=== PATIENT | female | born 1995 | race Caucasian/White ===

== ENCOUNTER 2021-04-02 23:28 | Inpatient (IN) | payer MEDICAID, OTHER ==
[~2021-04-02] VITALS: Ht 157.5 cm; Wt 151.3 kg
--- NOTE | 2021-04-03 00:25 | NUR ---
PATIENT STATES SHE HAS BEEN SICK SINCE Tuesday03/27/21 WITH SYMPTOMS WORSENING OVER THE LAST 24 HOURS. LES HAS NOT HAD THE VACCINE. INITIAL ROOM AIR SATURATION 92%. WITH ACTIVITY OF LABS, X-RAY PATIENT'S ROOM AIR SATUATION DECREASED DOWN TO 86% AND WAS PLACED ON 2L VIA NC.
[2021-04-03 00:29] LABS: BASOPHILS % (AUTO) 0 % (0-1); EOSINOPHILS % (AUTO) 0 % (1-7); LYMPHOCYTES % (AUTO) 18 % (22-44); MEAN CORPUSCULAR HEMOGLOBIN 25.3 pg (27.0-34.8); MEAN CORPUSCULAR HGB CONC 33.5 g/dL (32.4-35.8); MEAN PLATELET VOLUME 8.8 fL (7.4-10.4); MONOCYTES % (AUTO) 4 % (2-9); NEUTROPHILS % (AUTO) 78 % (42-75); PLATELET COUNT 189 x10^3/uL (130-400); RED BLOOD COUNT 5.08 x10^6/uL (3.82-5.3); RED CELL DISTRIBUTION WIDTH 15.4 % (9.6-15.2)
[2021-04-03] MEDS ORDERED: SODIUM CHLORIDE 0.9% 1,000ML IVBOLUS ONE (00:30)
[2021-04-03] MEDS ORDERED: DEXAMETHASONE 4 MG TABLET PO ONE (00:30)
[2021-04-03] MEDS ORDERED: ACETAMINOPHEN 325 MG TABLET PO ONE (00:30)
[2021-04-03] MEDS ORDERED: DEXAMETHASONE 4 MG TABLET ONE (00:31)
[2021-04-03] MEDS ORDERED: ACETAMINOPHEN 325 MG TABLET ONE (00:31)
[2021-04-03 00:40] LABS: ALBUMIN 2.7 g/dL (3.4-5.0); ANION GAP 6 mmol/L (5-15); CALCIUM 8.3 mg/dL (8.5-10.1); CHLORIDE 103 mmol/L (98-107)
[2021-04-03 00:46] LABS: ALANINE AMINOTRANSFERASE 31 U/L (12-78); ALKALINE PHOSPHATASE 75 U/L (45-117); BILIRUBIN,TOTAL 0.3 mg/dL (0.2-1.0); CREATININE 0.81 mg/dL (0.55-1.02); TOTAL PROTEIN 7.7 g/dL (6.4-8.2); TROPONIN I < 0.015 ng/mL (0.000-0.045)
--- NOTE | 2021-04-03 01:03 | NUR ---
PATIENT SITTING UP ON GURNEY, RESPIRATIONS SHALLOW, ALL NEEDS MET AT THIS TIME, WILL CONTINUE TO MONITOR.
--- NOTE | 2021-04-03 01:34 | NUR ---
Break RN: Patient sitting up in [facility]. Respirations even and rapid. Awaiting bed for admission.
--- NOTE | 2021-04-03 01:44 | NUR ---
Pt to be admitted to [facility], room 505. Report called to Basilia alfred.
[2021-04-03 02:00] VITALS: BP 120/77
[2021-04-03] MEDS ORDERED: ONDANSETRON 2MG/ML, 2ML IVPush PRN (02:00)
[2021-04-03] MEDS ORDERED: POLYETHYLENE GLYCOL 17 GM PACKET PO PRN (02:00)
[2021-04-03] MEDS ORDERED: PHARMACY MAY ADJ FOR RENAL FX MC PRN (02:00)
[2021-04-03] MEDS ORDERED: MELATONIN 5 MG TABLET PO PRN (02:00)
[2021-04-03] MEDS ORDERED: POTASSIUM CHLORIDE 20 MEQ TAB.ER.PRT PO ONE (02:00)
[2021-04-03] MEDS ORDERED: OXYcodone IR 5MG TABLET PO PRN (02:00)
[2021-04-03] MEDS ORDERED: BENZONATATE 100 MG CAPSULE PO ONE (02:00)
[2021-04-03] MEDS ORDERED: KETOROLAC 30 MG/1 ML IV PRN (02:00)
[2021-04-03] MEDS ORDERED: LABETALOL 5MG/ML, 20ML IVPush PRN (02:00)
[2021-04-03] MEDS: ENOXAPARIN 30 MG/0.3 ML SQ SCH ×2 (02:42→16:41)
[2021-04-03 06:31] LABS: BASOPHILS % (AUTO) 0 % (0-1); EOSINOPHILS % (AUTO) 0 % (1-7); LYMPHOCYTES % (AUTO) 9 % (22-44); MEAN CORPUSCULAR HEMOGLOBIN 25.5 pg (27.0-34.8); MEAN CORPUSCULAR HGB CONC 33.5 g/dL (32.4-35.8); MEAN PLATELET VOLUME 9.7 fL (7.4-10.4); MONOCYTES % (AUTO) 2 % (2-9); NEUTROPHILS % (AUTO) 88 % (42-75); PLATELET COUNT 181 x10^3/uL (130-400); RED BLOOD COUNT 4.87 x10^6/uL (3.82-5.3); RED CELL DISTRIBUTION WIDTH 15.1 % (9.6-15.2)
[2021-04-03 06:34] LABS: CHLORIDE 105 mmol/L (98-107)
[2021-04-03 06:43] LABS: ANION GAP 7 mmol/L (5-15); CALCIUM 8.6 mg/dL (8.5-10.1)
[2021-04-03 07:12] VITALS: BP 110/74
[2021-04-03] MEDS ORDERED: GUAIFENESIN/COD200MG-20MG/10ML LIQUID PO PRN (09:00)
[2021-04-03] MEDS: ZINC SULFATE 220 MG CAPSULE PO SCH (09:31)
[2021-04-03] MEDS: ASCORBIC ACID 500 MG TABLET PO SCH ×2 (09:31→20:53)
[2021-04-03] MEDS: DEXAMETHASONE 4 MG/ML, 1ML IVPush SCH (09:31)
[2021-04-03] MEDS: BENZONATATE 100 MG CAPSULE PO SCH ×3 (09:32→20:53)
[2021-04-03] MEDS: FAMOTIDINE 20 MG TABLET PO SCH ×2 (09:32→20:53)
[2021-04-03] MEDS: THIAMINE 100MG TABLET PO SCH (09:32)
[2021-04-03] MEDS: CHOLECALCIFEROL 5,000u TAB PO SCH (09:32)
[2021-04-03 12:21] VITALS: BP 115/78
[2021-04-03 20:46] VITALS: BP 95/49
[2021-04-03] MEDS: MELATONIN 5 MG TABLET PO SCH (20:54)
[2021-04-03] MEDS: ACETAMINOPHEN 325 MG TABLET PO PRN (21:18)
[2021-04-04 00:55] VITALS: BP 94/56
[2021-04-04] MEDS: ENOXAPARIN 30 MG/0.3 ML SQ SCH ×2 (06:10→17:10)
[2021-04-04 06:12] LABS: BASOPHILS % (AUTO) 0 % (0-1); EOSINOPHILS % (AUTO) 0 % (1-7); LYMPHOCYTES % (AUTO) 24 % (22-44); MEAN CORPUSCULAR HEMOGLOBIN 25.6 pg (27.0-34.8); MEAN CORPUSCULAR HGB CONC 33.9 g/dL (32.4-35.8); MEAN PLATELET VOLUME 9.1 fL (7.4-10.4); MONOCYTES % (AUTO) 11 % (2-9); NEUTROPHILS % (AUTO) 65 % (42-75); PLATELET COUNT 197 x10^3/uL (130-400); RED BLOOD COUNT 4.79 x10^6/uL (3.82-5.3); RED CELL DISTRIBUTION WIDTH 15.3 % (9.6-15.2)
[2021-04-04 06:15] LABS: HCT (SEDRATE) 35.9 % (34.6-47.8)
[2021-04-04 06:41] LABS: ALBUMIN 2.4 g/dL (3.4-5.0); ANION GAP 6 mmol/L (5-15); CALCIUM 8.7 mg/dL (8.5-10.1); CHLORIDE 105 mmol/L (98-107); CREATININE 0.65 mg/dL (0.55-1.02)
[2021-04-04 06:49] LABS: ALANINE AMINOTRANSFERASE 27 U/L (12-78); ALKALINE PHOSPHATASE 67 U/L (45-117); BILIRUBIN,TOTAL 0.3 mg/dL (0.2-1.0); TOTAL PROTEIN 7.2 g/dL (6.4-8.2)
[2021-04-04 07:45] VITALS: BP 106/71
[2021-04-04] MEDS ORDERED: REMDESIVIR 200 MG in SODIUM CHLORIDE 0.9% 250 ML IVPB ONE (08:00)
[2021-04-04] MEDS: THIAMINE 100MG TABLET PO SCH (09:13)
[2021-04-04] MEDS: ZINC SULFATE 220 MG CAPSULE PO SCH (09:13)
[2021-04-04] MEDS: FAMOTIDINE 20 MG TABLET PO SCH ×2 (09:13→21:37)
[2021-04-04] MEDS: ASCORBIC ACID 500 MG TABLET PO SCH ×2 (09:13→21:37)
[2021-04-04] MEDS: CHOLECALCIFEROL 5,000u TAB PO SCH (09:13)
[2021-04-04] MEDS: BENZONATATE 100 MG CAPSULE PO SCH ×3 (09:13→21:37)
[2021-04-04] MEDS: DEXAMETHASONE 4 MG/ML, 1ML IVPush SCH (09:14)
[2021-04-04 11:29] VITALS: BP 99/64
[2021-04-04 14:36] VITALS: BP 109/63
[2021-04-04 20:03] VITALS: BP 106/64
[2021-04-04] MEDS: MELATONIN 5 MG TABLET PO SCH (21:00)
[2021-04-04] MEDS: ACETAMINOPHEN 325 MG TABLET PO PRN (21:37)
[2021-04-05 00:07] VITALS: BP 121/72
[2021-04-05] MEDS: ENOXAPARIN 30 MG/0.3 ML SQ SCH ×2 (05:31→17:32)
[2021-04-05 06:12] LABS: BASOPHILS % (AUTO) 0 % (0-1); EOSINOPHILS % (AUTO) 0 % (1-7); LYMPHOCYTES % (AUTO) 39 % (22-44); MEAN CORPUSCULAR HEMOGLOBIN 25.3 pg (27.0-34.8); MEAN CORPUSCULAR HGB CONC 33.3 g/dL (32.4-35.8); MEAN PLATELET VOLUME 8.8 fL (7.4-10.4); MONOCYTES % (AUTO) 14 % (2-9); NEUTROPHILS % (AUTO) 46 % (42-75); PLATELET COUNT 223 x10^3/uL (130-400); RED BLOOD COUNT 4.58 x10^6/uL (3.82-5.3); RED CELL DISTRIBUTION WIDTH 15.2 % (9.6-15.2)
[2021-04-05 06:17] LABS: CHLORIDE 106 mmol/L (98-107)
[2021-04-05 06:25] LABS: ALANINE AMINOTRANSFERASE 29 U/L (12-78); ALBUMIN 2.4 g/dL (3.4-5.0); ALKALINE PHOSPHATASE 63 U/L (45-117); ANION GAP 7 mmol/L (5-15); BILIRUBIN,TOTAL 0.3 mg/dL (0.2-1.0); CALCIUM 8.6 mg/dL (8.5-10.1); CREATININE 0.57 mg/dL (0.55-1.02); TOTAL PROTEIN 7.2 g/dL (6.4-8.2)
[2021-04-05] MEDS ORDERED: POTASSIUM CHLORIDE 20 MEQ TAB.ER.PRT PO ONE (07:30)
[2021-04-05 09:28] VITALS: BP 116/78
[2021-04-05] MEDS: THIAMINE 100MG TABLET PO SCH (09:34)
[2021-04-05] MEDS: ASCORBIC ACID 500 MG TABLET PO SCH ×2 (09:34→20:46)
[2021-04-05] MEDS: FAMOTIDINE 20 MG TABLET PO SCH ×2 (09:34→20:45)
[2021-04-05] MEDS: CHOLECALCIFEROL 5,000u TAB PO SCH (09:34)
[2021-04-05] MEDS: BENZONATATE 100 MG CAPSULE PO SCH ×3 (09:34→20:46)
[2021-04-05] MEDS: DEXAMETHASONE 4 MG/ML, 1ML IVPush SCH (09:34)
[2021-04-05] MEDS: ZINC SULFATE 220 MG CAPSULE PO SCH (09:35)
[2021-04-05] MEDS: REMDESIVIR 100 MG in SODIUM CHLORIDE 0.9% 250 ML IVPB SCH (09:35)
[2021-04-05 14:34] LABS: MICROSCOPIC AUTO
[2021-04-05 15:50] VITALS: BP 111/73
[2021-04-05] MEDS: MELATONIN 5 MG TABLET PO SCH (20:46)
[2021-04-05 20:47] VITALS: BP 117/84
[2021-04-06 01:33] VITALS: BP 125/81
[2021-04-06 05:18] LABS: BASOPHILS % (AUTO) 0 % (0-1); EOSINOPHILS % (AUTO) 0 % (1-7); LYMPHOCYTES % (AUTO) 35 % (22-44); MEAN CORPUSCULAR HEMOGLOBIN 25.2 pg (27.0-34.8); MEAN CORPUSCULAR HGB CONC 33.4 g/dL (32.4-35.8); MEAN PLATELET VOLUME 8.5 fL (7.4-10.4); MONOCYTES % (AUTO) 16 % (2-9); NEUTROPHILS % (AUTO) 49 % (42-75); PLATELET COUNT 237 x10^3/uL (130-400); RED BLOOD COUNT 4.55 x10^6/uL (3.82-5.3); RED CELL DISTRIBUTION WIDTH 15.5 % (9.6-15.2)
[2021-04-06 05:19] LABS: HCT (SEDRATE) 34.4 % (34.6-47.8)
[2021-04-06 05:32] LABS: CHLORIDE 106 mmol/L (98-107)
[2021-04-06] MEDS: ENOXAPARIN 30 MG/0.3 ML SQ SCH ×2 (05:35→17:08)
[2021-04-06 05:44] LABS: ALANINE AMINOTRANSFERASE 30 U/L (12-78); ALBUMIN 2.4 g/dL (3.4-5.0); ALKALINE PHOSPHATASE 56 U/L (45-117); ANION GAP 6 mmol/L (5-15); BILIRUBIN,TOTAL 0.3 mg/dL (0.2-1.0); CALCIUM 8.5 mg/dL (8.5-10.1); CREATININE 0.54 mg/dL (0.55-1.02); TOTAL PROTEIN 6.8 g/dL (6.4-8.2)
[2021-04-06 08:57] VITALS: BP 119/77
[2021-04-06] MEDS: FAMOTIDINE 20 MG TABLET PO SCH ×2 (09:02→21:05)
[2021-04-06] MEDS: REMDESIVIR 100 MG in SODIUM CHLORIDE 0.9% 250 ML IVPB SCH (09:02)
[2021-04-06] MEDS: THIAMINE 100MG TABLET PO SCH (09:02)
[2021-04-06] MEDS: CHOLECALCIFEROL 5,000u TAB PO SCH (09:02)
[2021-04-06] MEDS: ZINC SULFATE 220 MG CAPSULE PO SCH (09:02)
[2021-04-06] MEDS: BENZONATATE 100 MG CAPSULE PO SCH ×3 (09:02→23:28)
[2021-04-06] MEDS: DEXAMETHASONE 4 MG/ML, 1ML IVPush SCH (09:02)
[2021-04-06] MEDS: ASCORBIC ACID 500 MG TABLET PO SCH ×2 (09:02→21:04)
[2021-04-06 12:00] VITALS: BP 108/60
[2021-04-06 20:23] VITALS: BP 112/72
[2021-04-06] MEDS: MELATONIN 5 MG TABLET PO SCH (21:05)
[2021-04-07 01:29] VITALS: BP 121/79
[2021-04-07 05:36] LABS: BASOPHILS % (AUTO) 0 % (0-1); EOSINOPHILS % (AUTO) 0 % (1-7); LYMPHOCYTES % (AUTO) 26 % (22-44); MEAN CORPUSCULAR HEMOGLOBIN 25.3 pg (27.0-34.8); MEAN CORPUSCULAR HGB CONC 33.6 g/dL (32.4-35.8); MEAN PLATELET VOLUME 8.7 fL (7.4-10.4); MONOCYTES % (AUTO) 11 % (2-9); NEUTROPHILS % (AUTO) 63 % (42-75); PLATELET COUNT 273 x10^3/uL (130-400); RED CELL DISTRIBUTION WIDTH 15.2 % (9.6-15.2)
[2021-04-07 05:41] LABS: ALBUMIN 2.6 g/dL (3.4-5.0); ANION GAP 7 mmol/L (5-15); CHLORIDE 107 mmol/L (98-107)
[2021-04-07 05:47] LABS: ALANINE AMINOTRANSFERASE 30 U/L (12-78); ALKALINE PHOSPHATASE 55 U/L (45-117); BILIRUBIN,TOTAL 0.4 mg/dL (0.2-1.0); CREATININE 0.55 mg/dL (0.55-1.02); TOTAL PROTEIN 6.8 g/dL (6.4-8.2)
[2021-04-07] MEDS: ENOXAPARIN 30 MG/0.3 ML SQ SCH (06:00)
[2021-04-07] MEDS: FAMOTIDINE 20 MG TABLET PO SCH (09:05)
[2021-04-07] MEDS: ASCORBIC ACID 500 MG TABLET PO SCH (09:05)
[2021-04-07] MEDS: THIAMINE 100MG TABLET PO SCH (09:05)
[2021-04-07] MEDS: ZINC SULFATE 220 MG CAPSULE PO SCH (09:05)
[2021-04-07] MEDS: CHOLECALCIFEROL 5,000u TAB PO SCH (09:05)
[2021-04-07] MEDS: DEXAMETHASONE 4 MG/ML, 1ML IVPush SCH (09:06)
[2021-04-07] MEDS: BENZONATATE 100 MG CAPSULE PO SCH (09:06)
[2021-04-07] MEDS: REMDESIVIR 100 MG in SODIUM CHLORIDE 0.9% 250 ML IVPB SCH (09:06)
[2021-04-07] MEDS ORDERED: PRED10TA PO (09:53)
[2021-04-07] MEDS ORDERED: APIX5TAB PO (09:53)
== END 2021-04-07 16:30 | disposition home or self-care (01) | DRG 137 ==
LOC: ED 04-03 02:13 → EDIP 04-03 02:14 → 5SO 04-03 02:15 → 3N 04-06 20:14
PROVIDERS: ADMIT Internal Medicine; ATTEND Family Medicine
PROC: XW033E5 Introduction of Remdesivir Anti-infective into Peripheral Vein, Percutaneous Approach, New Technology Group 5 (ICD-10-PCS; principal; 2021-04-05)
DX: U07.1 COVID-19 (principal); J96.01 Acute respiratory failure with hypoxia; J12.82 Pneumonia due to coronavirus disease 2019; E66.01 Morbid (severe) obesity due to excess calories; E87.6 Hypokalemia; F19.10 Other psychoactive substance abuse, uncomplicated; Z68.44 Body mass index [BMI] 60.0-69.9, adult; Z79.899 Other long term (current) drug therapy
CPT/HCPCS: 36415; 71045; 80048; 80053; 81001; 82728; 83615; 83735; 84145; 84484; 84703; 85025; 85379; 85651; 86140; 87086; 93005; 99285; G0378; J1100; J1650; J7030; J7050